=== PATIENT | female | born 1945 | race Two or more races ===

== ENCOUNTER 2017-09-17 11:55 | Outpatient (CLI) | payer OTHER ==
[~2017-09-17 11:55] MED LIST: ATENOLOL25 MG PO; CIPRO500 MG PO; FLEXERIL PO; HYDROCHLOROTH12.5 M1 PO; NABUMETONE500 MG PO; NABUMETONE750 MG PO; PAXIL30 MG PO; PERCOCET 5/3251 TAB PO; RELAFEN PO; RISPERDAL0.5 MG PO; VASOTEC2.5 MG; ZOCOR40 MG PO
== END 2017-09-17 12:30 | disposition home or self-care (01) ==
LOC: NUCLEAR 11:55
DX: M85.9 Disorder of bone density and structure, unspecified (principal); M81.0 Age-related osteoporosis without current pathological fracture

== ENCOUNTER 2017-10-20 08:38 | Outpatient (CLI) | payer OTHER | END 2017-10-20 08:55 | disposition home or self-care (01) | LOC: RAD 08:38 | DX: S72.22 Displaced subtrochanteric fracture of left femur (principal); T84.09 Other mechanical complication of internal joint prosthesis; M85.9 Disorder of bone density and structure, unspecified; M54.5 Low back pain; R10.9 Unspecified abdominal pain ==

== ENCOUNTER 2017-10-28 08:49 | Outpatient (CLI) | payer OTHER | END 2017-10-28 09:00 | disposition home or self-care (01) | LOC: LAB 08:49 | DX: E21.3 Hyperparathyroidism, unspecified (principal); M81.8 Other osteoporosis without current pathological fracture; E56.1 Deficiency of vitamin K; E03.8 Other specified hypothyroidism; E88.89 Other specified metabolic disorders ==

== ENCOUNTER 2017-12-30 10:47 | Outpatient (CLI) | payer OTHER | END 2017-12-30 11:00 | disposition home or self-care (01) | LOC: RAD 10:47 | DX: M25.561 Pain in right knee (principal); M25.562 Pain in left knee ==

== ENCOUNTER 2018-06-26 11:09 | Emergency (ER) | payer OTHER ==
[~2018-06-26] VITALS: Ht 182.9 cm; Wt 97.5 kg
== END 2018-06-26 22:06 | disposition home or self-care (01) ==
LOC: ER 11:09
DX: R42 Dizziness and giddiness (principal); N39.0 Urinary tract infection, site not specified

== ENCOUNTER 2018-08-24 09:47 | Outpatient (CLI) | payer OTHER | END 2018-08-24 09:55 | disposition home or self-care (01) | LOC: RAD 09:47 | DX: S72.22 Displaced subtrochanteric fracture of left femur (principal); T84.03 Mechanical loosening of internal prosthetic joint ==

== ENCOUNTER 2018-11-03 08:43 | Outpatient (CLI) | payer OTHER | END 2018-11-03 08:57 | disposition home or self-care (01) | LOC: NUCLEAR 08:43 | DX: S72.22XK Displaced subtrochanteric fracture of left femur, subsequent encounter for closed fracture with nonunion (principal) | CPT/HCPCS: 78315; 78802; A9503; A9556 ==

== ENCOUNTER 2018-11-23 06:37 | Day surgery (SDC) | payer OTHER | END 2018-11-23 11:45 | disposition home or self-care (01) | LOC: AMB-ENDOS 06:37 | DX: K29.50 Unspecified chronic gastritis without bleeding (principal) ==

== ENCOUNTER 2018-11-27 08:04 | Outpatient (CLI) | payer OTHER | END 2018-11-27 08:15 | disposition home or self-care (01) | LOC: LAB 08:04 | DX: D64.89 Other specified anemias (principal); B96.29 Other Escherichia coli [E. coli] as the cause of diseases classified elsewhere; E88.89 Other specified metabolic disorders; D68.8 Other specified coagulation defects; N39.0 Urinary tract infection, site not specified; Z22.322 Carrier or suspected carrier of Methicillin resistant Staphylococcus aureus; Z76.89 Persons encountering health services in other specified circumstances ==

== ENCOUNTER → 2018-11-29 | Outpatient (CLI) | payer OTHER | END | disposition home or self-care (01) | LOC: EKG 10:38 | DX: I49.8 Other specified cardiac arrhythmias (principal); Z01.810 Encounter for preprocedural cardiovascular examination ==

== ENCOUNTER 2018-12-01 14:06 | Outpatient (CLI) | payer OTHER | END 2018-12-01 14:12 | disposition home or self-care (01) | LOC: RAD 501 14:06 | DX: M25.552 Pain in left hip (principal) ==

== ENCOUNTER → 2018-12-08 | Outpatient (CLI) | payer OTHER | END | disposition home or self-care (01) | LOC: NUCLEAR 14:30 | DX: I70.213 Atherosclerosis of native arteries of extremities with intermittent claudication, bilateral legs (principal) ==

== ENCOUNTER 2018-12-09 16:37 | Outpatient (CLI) | payer OTHER | END 2018-12-09 16:40 | disposition home or self-care (01) | LOC: LAB 16:37 | DX: N39.0 Urinary tract infection, site not specified (principal); B96.29 Other Escherichia coli [E. coli] as the cause of diseases classified elsewhere ==

== ENCOUNTER 2018-12-10 14:22 | Inpatient (IN) | payer OTHER ==
[~2018-12-10] VITALS: Ht 182.9 cm; Wt 113.4 kg
== END 2019-01-04 14:39 | DRG 464 ==
LOC: SURH 12-13 08:00 → O/R 12-20 09:50 → SURH 12-20 22:07
PROVIDERS: Orthopaedic Surgery; ADMIT Internal Medicine Cardiovascular Disease
PROC: 3E0U029 Introduction of Other Anti-infective into Joints, Open Approach (ICD-10-PCS; 2018-12-20)
PROC: 3E0F7GC Introduction of Other Therapeutic Substance into Respiratory Tract, Via Natural or Artificial Opening (ICD-10-PCS; 2018-12-20)
PROC: 8E0ZXY6 Isolation (ICD-10-PCS; 2018-12-20)
PROC: 0SPB0JZ Removal of Synthetic Substitute from Left Hip Joint, Open Approach (ICD-10-PCS; principal; 2018-12-20 08:30)
PROC: 0S9B3ZX Drainage of Left Hip Joint, Percutaneous Approach, Diagnostic (ICD-10-PCS; 2018-12-27)
PROC: 0JDM0ZZ Extraction of Left Upper Leg Subcutaneous Tissue and Fascia, Open Approach (ICD-10-PCS; 2018-12-27)
PROC: 02HV33Z Insertion of Infusion Device into Superior Vena Cava, Percutaneous Approach (ICD-10-PCS; 2018-12-29)
DX: S72.142K Displaced intertrochanteric fracture of left femur, subsequent encounter for closed fracture with nonunion (principal); T84.52XA Infection and inflammatory reaction due to internal left hip prosthesis, initial encounter; T84.7XXA Infection and inflammatory reaction due to other internal orthopedic prosthetic devices, implants and grafts, initial encounter; M00.9 Pyogenic arthritis, unspecified; M86.152 Other acute osteomyelitis, left femur; K22.10 Ulcer of esophagus without bleeding; D62 Acute posthemorrhagic anemia; I82.412 Acute embolism and thrombosis of left femoral vein; M71.152 Other infective bursitis, left hip; I10 Essential (primary) hypertension; M16.12 Unilateral primary osteoarthritis, left hip; T36.8X1A Poisoning by other systemic antibiotics, accidental (unintentional), initial encounter; B96.0 Mycoplasma pneumoniae [M. pneumoniae] as the cause of diseases classified elsewhere; M24.652 Ankylosis, left hip; M97.02XD Periprosthetic fracture around internal prosthetic left hip joint, subsequent encounter

== ENCOUNTER 2018-12-17 09:30 | Outpatient (CLI) | payer OTHER | END 2018-12-17 09:54 | disposition home or self-care (01) | LOC: LAB 09:30 | DX: N39.0 Urinary tract infection, site not specified (principal) ==

== ENCOUNTER → 2019-03-21 08:22 | Outpatient (CLI) | payer OTHER | END | disposition home or self-care (01) | LOC: LAB 08:22 | DX: D64.89 Other specified anemias (principal); M06.4 Inflammatory polyarthropathy ==

== ENCOUNTER 2019-04-14 08:41 | Outpatient (CLI) | payer OTHER | END 2019-04-14 14:21 | disposition home or self-care (01) | LOC: MRI 08:41 | DX: M25.561 Pain in right knee (principal); M25.562 Pain in left knee; M25.551 Pain in right hip; M79.652 Pain in left thigh; M25.552 Pain in left hip; M23.92 Unspecified internal derangement of left knee; M17.11 Unilateral primary osteoarthritis, right knee; M23.91 Unspecified internal derangement of right knee | CPT/HCPCS: 73721 ==

== ENCOUNTER 2019-04-19 08:24 | Outpatient (CLI) | payer OTHER | END 2019-04-19 08:34 | disposition home or self-care (01) | LOC: LAB 08:24 | DX: D47.2 Monoclonal gammopathy (principal) ==

== ENCOUNTER → 2019-04-21 10:12 | Outpatient (CLI) | payer OTHER | END | disposition home or self-care (01) | LOC: LAB 10:12 | DX: I10 Essential (primary) hypertension (principal); J30.89 Other allergic rhinitis; D84.8 Other specified immunodeficiencies; J98.8 Other specified respiratory disorders; J40 Bronchitis, not specified as acute or chronic; K21.9 Gastro-esophageal reflux disease without esophagitis ==

== ENCOUNTER → 2019-05-30 08:20 | Outpatient (CLI) | payer OTHER | END | disposition home or self-care (01) | LOC: LAB 08:20 | DX: D64.89 Other specified anemias (principal); M06.4 Inflammatory polyarthropathy; N39.0 Urinary tract infection, site not specified ==

== ENCOUNTER → 2019-06-08 13:44 | Outpatient (CLI) | payer OTHER | END | disposition home or self-care (01) | LOC: LAB 13:44 | DX: N39.0 Urinary tract infection, site not specified (principal) ==

== ENCOUNTER → 2019-06-30 09:41 | Outpatient (CLI) | payer OTHER | END | disposition home or self-care (01) | LOC: LAB 09:41 | DX: D64.89 Other specified anemias (principal); E88.89 Other specified metabolic disorders; D68.8 Other specified coagulation defects; N39.0 Urinary tract infection, site not specified; Z22.322 Carrier or suspected carrier of Methicillin resistant Staphylococcus aureus; Z76.89 Persons encountering health services in other specified circumstances; I49.8 Other specified cardiac arrhythmias ==

== ENCOUNTER → 2019-07-13 | Emergency (ER) | payer OTHER ==
[~2019-07-13] VITALS: Ht 182.9 cm; Wt 113.4 kg
== END | disposition left against medical advice (07) ==
LOC: ER 12:08
DX: Z53.20 Procedure and treatment not carried out because of patient's decision for unspecified reasons (principal)

== ENCOUNTER 2019-07-19 09:24 | Day surgery (SDC) | payer OTHER | END 2019-07-19 17:15 | disposition home or self-care (01) | LOC: CIR.AMB 09:24 | DX: S72.142K Displaced intertrochanteric fracture of left femur, subsequent encounter for closed fracture with nonunion (principal); M25.552 Pain in left hip ==

== ENCOUNTER → 2019-07-22 | Outpatient (CLI) | payer OTHER | END | disposition home or self-care (01) | LOC: MRI 12:00 | DX: M86.652 Other chronic osteomyelitis, left thigh (principal) | CPT/HCPCS: 73723; A9575; 73722 ==

== ENCOUNTER → 2019-11-01 | Outpatient (CLI) | payer OTHER ==
[~2019-11-01] VITALS: Ht 185.4 cm; Wt 113.4 kg
== END | disposition home or self-care (01) ==
LOC: OFIC 805 09:26
DX: R42 Dizziness and giddiness (principal); H91.8X1 Other specified hearing loss, right ear

== ENCOUNTER 2019-11-16 08:44 | Outpatient (CLI) | payer OTHER | END 2019-11-16 09:01 | disposition home or self-care (01) | LOC: LAB 08:44 | DX: I10 Essential (primary) hypertension (principal); E11.9 Type 2 diabetes mellitus without complications; E03.8 Other specified hypothyroidism; E78.2 Mixed hyperlipidemia; N39.0 Urinary tract infection, site not specified; M12.88 Other specific arthropathies, not elsewhere classified, other specified site; D64.89 Other specified anemias ==